=== PATIENT | female | born 1965 | race African-American/Black ===

== ENCOUNTER 2017-07-04 15:41 | Emergency (ER) | payer MEDICARE ==
[~2017-07-04] VITALS: Ht 175.3 cm; Wt 108.4 kg
[~2017-07-04 15:41] MED LIST: AMIT10TA PO; AMLO10TA2 PO; CARV12.52 PO; CYCL5TAB PO; FERR-26 PO; FURO20TA3 PO; HYDR200T5 PO; METO50TA6 PO; OXYC5CAP PO; POTA20TA82 PO; PRED-220 PO
--- NOTE | 2017-07-04 16:00 | PHYS DOC ---
Past Medical History Past Medical History: Hypertension Additional Past Medical Histor: Lupus Past Surgical History: No Surgical History Alcohol Use: None Drug Use: None Adult General Chief Complaint Chief Complaint: FACE PROBLEM HPI HPI Patient is a 51 year old female presenting to the emergency department for evaluation of continued face tingling and she says she feels that the left side of her face is more swollen than the right. She says the main reason that she is coming today is that last night her tongue became extremely swollen to the point she could not speak normally and had some difficulty breathing. She took some Benadryl and now her tongue and lip are normal in size however she says the left side of her face is still swollen. She says that this has happened at least 10 times and she has had no definitive diagnosis but she was told to see an primary care coordinator and is scheduled to see someone in November but she did not remember where. She was just admitted to the hospital 4 days ago and had negative MRI and carotid Doppler. I asked her if she has been diagnosed with angioedema and she said no. She says that her father has the same exact symptoms. She is on no NAVID inhibitor's or arbs. She says that she is having some upper back pain that is a chronic issue and she takes tramadol for but she is out of it currently. Review of Systems Review of Systems Constitutional: Denies fever or chills [] Respiratory: Denies cough or shortness of breath [] Cardiovascular: No additional information not addressed in HPI [] GI: Denies abdominal pain, nausea, vomiting, bloody stools or diarrhea [] : Denies dysuria or hematuria [] Musculoskeletal: + back pain. No joint pain [] Integument: Denies rash or skin lesions [] Neurologic: Denies headache, focal weakness. + BL facial sensory changes [] All other systems were reviewed and found to be within normal limits, except as documented in this note. Current Medications Current Medications Current Medications Medications (Trade) Dose Ordered Sig/Lucio Start Time Stop Time Status Last Admin Dose Admin Tramadol HCl (Ultram) 50 mg 1X ONCE 07/04/17 16:15 07/04/17 16:16 DC 07/04/17 16:19 50 MG Allergies Allergies Allergies Coded Allergies Type Severity Reaction Last Updated Verified lemon Allergy Intermediate Hives 06/30/17 Yes tomato Allergy Intermediate Hives 06/30/17 Yes ibuprofen Allergy Mild Hives 06/30/17 Yes Physical Exam Physical Exam Constitutional: Well developed, well nourished, no acute distress, non-toxic appearance. [] HENT: Normocephalic, atraumatic, bilateral external ears normal, oropharynx moist, no oral exudates, nose normal. [] Eyes: PERRLA, EOMI, conjunctiva normal, no discharge. [] Neck: Normal range of motion, no tenderness, supple, no stridor. [] Cardiovascular:Heart rate regular rhythm, no murmur [] Lungs & Thorax: Bilateral breath sounds clear to auscultation [] Abdomen: Bowel sounds normal, soft, no tenderness, no masses, no pulsatile masses. [] Skin: Warm, dry, no erythema, no rash. [] Back: No tenderness, no CVA tenderness. [] Extremities: Mild upper thoracic paraspinal tenderness, no cyanosis, no clubbing , ROM intact, no edema. [] Neurologic: Alert and oriented X 3, normal motor function, normal sensory function, no focal deficits noted. [] Current Patient Data Vital Signs Vital Signs Date Time Temp Pulse Resp B/P (MAP) Pulse Ox O2 Delivery O2 Flow Rate FiO2 07/04/17 17:57 68 19 148/84 (105) 96 Room Air 07/04/17 15:57 99.2 99.2 EKG EKG [] Radiology/Procedures Radiology/Procedures [] Course & Med Decision Making Course & Med Decision Making Patient denies any new soaps detergents medications or anything that she can think of. Patient is already on prednisone for her autoimmune condition. Certainly this could be an allergic reaction however given her clinical history of this happening multiple times and her father having it this is likely hereditary angioedema. She is having no airway involvement currently and she looks well with normal vital signs. Unfortunately there is no great treatment for her hereditary angioedema that I have to offer her but she should see an primary care coordinator to see if they can start her on any specialized medications. Patient is requesting tramadol for her back pain so I will give her this but told her not to take the Flexeril while she is on tramadol. Patient was watched in the emergency department for over 2 hours and she continued to have no swelling symptoms so she will be discharged in stable condition. Patient aware and agreeable with plan for discharge and verbalized understanding of the need for short-term follow-up and strict ED return precautions discussed worsening pain shortness of breath or other general concerns. Dragon Disclaimer Dragon Disclaimer This electronic medical record was generated, in whole or in part, using a voice recognition dictation system. Departure Departure Impression: Primary Impression: Hereditary angioedema Disposition: HOME, SELF-CARE Condition: STABLE Referrals: NOHEMI LY (PCP) Patient Instructions: Angioedema Additional Instructions: YOU LIKELY HAVE HEREDITARY ANGIOEDEMA THAT IS CAUSING THE FACIAL AND TONGUE SWELLING. YOU CAN TAKE 50MG Q4 HOURS FOR THIS. IF YOU ARE HAVING PROBLEMS BREATHING OR OTHER CONCERNS, CALL 911. CALL THESE NUMBERS TO SEE AN CARTON STAMPER. [phone]. Scripts Tramadol Hcl (TRAMADOL HCL) 50 Mg Tablet 1 TAB PO PRN Q6HRS, #20 TAB Prov: BLAKE WEBSTER DO 07/04/17 BLAKE WEBSTER DO Jul 04, 2017 16:00
[2017-07-04] MEDS ORDERED: traMADol 50 MG TABLET PO ONE (16:15)
[2017-07-04 17:57] VITALS: BP 148/84
[2017-07-04] MEDS ORDERED: TRAM50TA PO (18:16)
== END 2017-07-04 18:25 | disposition home or self-care (01) ==
LOC: ER 15:41
DX: D84.1 Defects in the complement system (principal); M32.9 Systemic lupus erythematosus, unspecified; I10 Essential (primary) hypertension; Z88.8 Allergy status to other drugs, medicaments and biological substances; Z91.018 Allergy to other foods
CPT/HCPCS: 99283

== ENCOUNTER 2017-07-23 08:13 | Emergency (ER) | payer MEDICARE ==
[2017-07-23] MEDS ORDERED: 0.9 % SODIUM CHLORIDE 10 ML DISP.SYRIN. IV (08:30)
[2017-07-23 08:40] LABS: ADD MAN DIFF? NO
[2017-07-23 08:42] LABS: BASO % 1 % (0-3); EOS # 0.1 x10^3/uL (0.0-0.7); EOS % 2 % (0-3); HEMATOCRIT 44.5 % (36.0-47.0); HEMOGLOBIN 14.8 g/dL (12.0-15.5); LYMPH # 1.1 x10^3/uL (1.0-4.8); LYMPH % 21 % (24-48); MEAN CORPUSCULAR HEMOGLOBIN 32 pg (25-35); MEAN CORPUSCULAR HGB CONC 33 g/dL (31-37); MEAN CORPUSCULAR VOLUME 97 fL (79-100); MONO # 0.4 x10^3/uL (0.0-1.1); MONO % 8 % (0-9); NEUT # 3.8 x10^3uL (1.8-7.7); NEUT % 69 % (31-73); PLATELET COUNT 342 x10^3/uL (140-400); RED BLOOD COUNT 4.57 x10^6/uL (3.50-5.40); RED CELL DISTRIBUTION WIDTH 12.9 % (11.5-14.5); WHITE BLOOD COUNT 5.5 x10^3/uL (4.0-11.0)
[2017-07-23] MEDS: IV NORMAL SALINE 1000ML BAG 1,000 ML IV (08:55)
[2017-07-23 08:56] LABS: ANION GAP 0 (6-14); BLOOD UREA NITROGEN 12 mg/dL (7-20); CARBON DIOXIDE 31 mmol/L (21-32); CHLORIDE 100 mmol/L (98-107); CREATININE 0.9 mg/dL (0.6-1.0); GFR 80.2; GLUCOSE 116 mg/dL (70-99); POTASSIUM 3.7 mmol/L (3.5-5.1); SODIUM 131 mmol/L (136-145)
[2017-07-23] MEDS: methylPREDNISolone SOD SUCC PF 125 MG/2 ML VIAL. IV (08:56)
[2017-07-23] MEDS: diphenhydrAMINE 50 MG/ML VIAL IVP (08:56)
[2017-07-23] MEDS: FAMOTIDINE 20 MG/2 ML VIAL IVP (08:58)
[2017-07-23] MEDS: EPINEPHrine 1 MG/ML VIAL IM (08:59)
[2017-07-23 09:01] LABS: ALBUMIN 3.4 g/dL (3.4-5.0); ALK PHOS 107 U/L (46-116); ALT (SGPT) 22 U/L (14-59); AST (SGOT) 19 U/L (15-37); DIRECT BILIRUBIN 0.1 mg/dL (0.0-0.2); LIPASE 90 U/L (73-393); MAGNESIUM 1.7 mg/dL (1.8-2.4); TOTAL BILIRUBIN 0.5 mg/dL (0.2-1.0); TOTAL PROTEIN 7.4 g/dL (6.4-8.2)
[2017-07-23 09:06] LABS: NT-PRO BNP 69 pg/mL (0-124)
[2017-07-23 09:08] LABS: TROPONINI < 0.017 ng/mL (0.000-0.055)
[2017-07-23 09:09] LABS: THYROID STIM HORMONE (TSH) 0.677 uIU/mL (0.358-3.74)
[2017-07-23 09:11] LABS: BILIRUBIN,URINE NEGATIVE (NEG); CLARITY,URINE CLEAR; COLOR,URINE YELLOW; GLUCOSE,URINE NEGATIVE (NEG); NITRITE,URINE NEGATIVE (NEG); PROTEIN,URINE NEGATIVE (NEG-TRACE); UROBILINOGEN,URINE 0.2 mg/dL (0.2 mg/dL)
[2017-07-23 09:21] LABS: SQUAMOUS EPITHELIAL CELL,UR MOD /LPF; WBC,URINE OCC /HPF (0-4)
[2017-07-23 09:22] LABS: BACTERIA,URINE 0 /HPF (0-FEW); RBC,URINE 0 /HPF (0-2)
[2017-07-23 16:04] LABS: NEGATIVE OBC STREP NEG; POSITIVE OBC STREP POS
== END 2017-07-23 11:00 | disposition home or self-care (01) ==
LOC: ER 08:13
DX: L50.0 Allergic urticaria (principal); I10 Essential (primary) hypertension; M32.9 Systemic lupus erythematosus, unspecified
CPT/HCPCS: 36415; 71046; 80048; 80076; 81001; 83690; 83735; 83880; 84443; 84484; 85025; 87070; 87880; 96361; 96372; 96374; 96375; 99285-25; J0171; J1200; J2930; J7030; S0028

== ENCOUNTER 2017-08-24 06:28 | Inpatient (IN) | payer MEDICARE ==
[2017-08-24] MEDS: ACETAMINOPHEN 325 MG TABLET. PO (06:38)
[2017-08-24 07:12] LABS: INFLUENZA A PATIENT NEGATIVE (NEGATIVE); INFLUENZA B PATIENT NEGATIVE (NEGATIVE); OBC FLU VALID
[2017-08-24] MEDS: IV NORMAL SALINE 1000ML BAG 1,000 ML IV ×5 (07:14→17:50)
[2017-08-24] MEDS ORDERED: PIP/TAZO PER PHARMACY MC (07:30)
[2017-08-24 07:37] LABS: BASO % 0 % (0-3); EOS % 0 % (0-3); HEMATOCRIT 42.5 % (36.0-47.0); HEMOGLOBIN 14.2 g/dL (12.0-15.5); LYMPH # 0.8 x10^3/uL (1.0-4.8); LYMPH % 7 % (24-48); MEAN CORPUSCULAR HEMOGLOBIN 32 pg (25-35); MEAN CORPUSCULAR HGB CONC 33 g/dL (31-37); MEAN CORPUSCULAR VOLUME 96 fL (79-100); MONO # 0.6 x10^3/uL (0.0-1.1); MONO % 5 % (0-9); NEUT # 11.6 x10^3uL (1.8-7.7); NEUT % 89 % (31-73); PLATELET COUNT 258 x10^3/uL (140-400); RED BLOOD COUNT 4.44 x10^6/uL (3.50-5.40); RED CELL DISTRIBUTION WIDTH 12.5 % (11.5-14.5); WHITE BLOOD COUNT 13.1 x10^3/uL (4.0-11.0)
[2017-08-24] MEDS: PIPERACILLIN/TAZOBACTAM 3.375 GM in IV NORMAL SALINE 50ML 50 ML IV ×3 (07:40→17:46)
[2017-08-24 07:51] LABS: ANION GAP 9 (6-14); BLOOD UREA NITROGEN 15 mg/dL (7-20); CALCIUM 9.1 mg/dL (8.5-10.1); CARBON DIOXIDE 28 mmol/L (21-32); CHLORIDE 98 mmol/L (98-107); CREATININE 0.8 mg/dL (0.6-1.0); GFR 91.9; GLUCOSE 107 mg/dL (70-99); SODIUM 135 mmol/L (136-145)
[2017-08-24 07:59] LABS: LACTIC ACID 1.9 mmol/L (0.4-2.0)
[2017-08-24 08:03] LABS: TROPONINI < 0.017 ng/mL (0.000-0.055)
[2017-08-24] MEDS: VANCOMYCIN 2 GM in IV DEXTROSE 5% 500 ML IV (08:06)
[2017-08-24 08:08] LABS: ADD MAN DIFF? YES
[2017-08-24] MEDS ORDERED: ONDANSETRON PF 4 MG/2 ML VIAL. IV ×2 (08:15→13:00)
[2017-08-24] MEDS ORDERED: MORPHINE SULFATE 2 MG/ML DISP.SYRIN. IV (08:15)
[2017-08-24 08:25] LABS: NT-PRO BNP 82 pg/mL (0-124)
[2017-08-24 08:26] LABS: ALBUMIN 3.2 g/dL (3.4-5.0); ALK PHOS 96 U/L (46-116); ALT (SGPT) 23 U/L (14-59); AST (SGOT) 16 U/L (15-37); DIRECT BILIRUBIN 0.2 mg/dL (0.0-0.2); LIPASE 101 U/L (73-393); TOTAL BILIRUBIN 0.9 mg/dL (0.2-1.0); TOTAL PROTEIN 7.4 g/dL (6.4-8.2)
[2017-08-24] MEDS: POTASSIUM CHLORIDE 20 MEQ/15 ML ORAL LIQUID. PEG (09:12)
[2017-08-24] MEDS: POTASSIUM CHLORIDE 10 MEQ in IV NORMAL SALINE 100ML 100 ML IV ×2 (09:12→12:45)
[2017-08-24 10:11] LABS: BILIRUBIN,URINE NEGATIVE (NEG); CLARITY,URINE CLEAR; COLOR,URINE YELLOW; GLUCOSE,URINE NEGATIVE (NEG); NITRITE,URINE NEGATIVE (NEG); PROTEIN,URINE NEGATIVE (NEG-TRACE); UROBILINOGEN,URINE 0.2 mg/dL (0.2 mg/dL)
[2017-08-24 10:28] LABS: BACTERIA,URINE FEW /HPF (0-FEW); RBC,URINE RARE /HPF (0-2); SQUAMOUS EPITHELIAL CELL,UR MOD /LPF
[2017-08-24 10:29] LABS: WBC,URINE OCC /HPF (0-4)
[2017-08-24 10:52] LABS: % BANDS 2 % (0-9); % LYMPHS 8 % (24-48); % MONOS 6 % (0-10); % SEGS 84 % (35-66)
[2017-08-24 10:53] LABS: PLT ESTIMATE ADEQUATE (ADEQUATE)
[2017-08-24 11:16] LABS: LACTIC ACID 2.4 mmol/L (0.4-2.0)
[2017-08-24] MEDS ORDERED: traMADol 50 MG TABLET PO ×2 (13:00)
[2017-08-24] MEDS: VANCOMYCIN PER PHARMACY MC ×2 (13:36→13:48)
[2017-08-24] MEDS: AZITHROMYCIN 500 MG in IV NORMAL SALINE 250ML 250 ML IV (13:56)
[2017-08-24 14:07] LABS: SEDIMENTATION RATE 15 (0-25)
[2017-08-24] MEDS: FUROSEMIDE 20 MG TABLET PO (14:31)
[2017-08-24] MEDS: METOPROLOL TART IMMED RELEASE 50 MG TABLET. PO ×2 (14:31→20:18)
[2017-08-24] MEDS: CYCLOBENZAPRINE 10 MG TABLET. PO (14:31)
[2017-08-24] MEDS: POTASSIUM CHLORIDE 20 MEQ TABLET.ER. PO (14:31)
[2017-08-24] MEDS: predniSONE 10 MG TABLET PO (14:31)
[2017-08-24] MEDS: CARVEDILOL 12.5 MG TABLET. PO ×2 (14:31→17:00)
[2017-08-24] MEDS: oxyCODONE IR 5 MG TABLET PO ×3 (14:34→20:17)
[2017-08-24 15:14] LABS: MYCOPLASMA PATIENT NEGATIVE (NEGATIVE); NEGATIVE OBC MYCO NEG; POSITIVE OBC MYCO POS
[2017-08-24] MEDS: IPRATRPIUM/ALBUTEROL 0.5/2.5MG 3 ML NEBU. NEB (16:19)
[2017-08-24] MEDS: amLODIPine BESYLATE 10 MG TABLET PO (17:46)
[2017-08-24] MEDS: diphenhydrAMINE HCL 25 MG CAPSULE PO (20:17)
[2017-08-24] MEDS: FAMOTIDINE 20 MG TABLET. PO (20:18)
[2017-08-24] MEDS: AMITRIPTYLINE HCL 10 MG TABLET. PO (20:18)
[2017-08-24] MEDS: VANCOMYCIN 1.75 GM in IV DEXTROSE 5% 500 ML IV (20:19)
[2017-08-25] MEDS: PIPERACILLIN/TAZOBACTAM 3.375 GM in IV NORMAL SALINE 50ML 50 ML IV ×4 (00:05→17:25)
[2017-08-25 05:13] LABS: ADD MAN DIFF? NO
[2017-08-25 05:25] LABS: BASO % 0 % (0-3); EOS % 0 % (0-3); HEMATOCRIT 38.5 % (36.0-47.0); LYMPH % 9 % (24-48); MEAN CORPUSCULAR HEMOGLOBIN 33 pg (25-35); MEAN CORPUSCULAR HGB CONC 34 g/dL (31-37); MEAN CORPUSCULAR VOLUME 97 fL (79-100); MONO # 0.6 x10^3/uL (0.0-1.1); MONO % 5 % (0-9); NEUT # 9.6 x10^3uL (1.8-7.7); NEUT % 85 % (31-73); PLATELET COUNT 233 x10^3/uL (140-400); RED BLOOD COUNT 3.99 x10^6/uL (3.50-5.40); RED CELL DISTRIBUTION WIDTH 12.8 % (11.5-14.5); WHITE BLOOD COUNT 11.3 x10^3/uL (4.0-11.0)
[2017-08-25 05:45] LABS: ANION GAP 9 (6-14); BLOOD UREA NITROGEN 8 mg/dL (7-20); CARBON DIOXIDE 29 mmol/L (21-32); CHLORIDE 102 mmol/L (98-107); CREATININE 0.8 mg/dL (0.6-1.0); GFR 91.9; GLUCOSE 96 mg/dL (70-99); POTASSIUM 3.6 mmol/L (3.5-5.1); SODIUM 140 mmol/L (136-145)
[2017-08-25] MEDS: amLODIPine BESYLATE 10 MG TABLET PO ×2 (06:00→17:24)
[2017-08-25 06:22] LABS: C4 COMPLEMENT 24 mg/dL (14-44)
[2017-08-25 06:22] LABS: C3 COMPLEMENT 131 mg/dL (82-167)
[2017-08-25] MEDS: IPRATRPIUM/ALBUTEROL 0.5/2.5MG 3 ML NEBU. NEB ×5 (07:42→19:31)
[2017-08-25] MEDS: IV NORMAL SALINE 1000ML BAG 1,000 ML IV (08:20)
[2017-08-25] MEDS: guaiFENesin DM 200MG/20MG 10 ML SYRUP PO (08:21)
[2017-08-25] MEDS: METOPROLOL TART IMMED RELEASE 50 MG TABLET. PO ×2 (08:21→21:38)
[2017-08-25] MEDS: FAMOTIDINE 20 MG TABLET. PO ×2 (08:21→21:34)
[2017-08-25] MEDS: CARVEDILOL 12.5 MG TABLET. PO ×2 (08:21→17:24)
[2017-08-25] MEDS: FUROSEMIDE 20 MG TABLET PO (08:21)
[2017-08-25] MEDS: POTASSIUM CHLORIDE 20 MEQ TABLET.ER. PO (08:22)
[2017-08-25] MEDS: oxyCODONE IR 5 MG TABLET PO ×4 (08:22→21:35)
[2017-08-25] MEDS: predniSONE 10 MG TABLET PO (08:22)
[2017-08-25] MEDS: VANCOMYCIN 1.75 GM in IV DEXTROSE 5% 500 ML IV ×2 (08:25→22:34)
[2017-08-25] MEDS: FERROUS SULFATE 325 MG TABLET. PO (08:25)
[2017-08-25] MEDS: VANCOMYCIN PER PHARMACY MC ×2 (10:59→20:09)
[2017-08-25] MEDS ORDERED: LACTOBACILLUS RHAMNOSUS GG 1 CAPSULE. PO (12:00)
[2017-08-25] MEDS ORDERED: AZITHROMYCIN 500 MG in IV NORMAL SALINE 250ML 250 ML IV (16:00)
[2017-08-25] MEDS: CYCLOBENZAPRINE 10 MG TABLET. PO (17:23)
[2017-08-25] MEDS: AZITHROMYCIN 500 MG in IV NORMAL SALINE 250ML 250 ML IV (17:59)
[2017-08-25 18:11] LABS: SPECIMEN SOURCE Urine (.); STREP PNEUMO ANTIGEN Negative (Negative)
[2017-08-25 18:11] LABS: LEGIONELLA AG UR Negative (Negative)
[2017-08-25 19:00] LABS: VANC TR 15.8 mcg/mL (10.0-20.0)
[2017-08-25] MEDS: diphenhydrAMINE HCL 25 MG CAPSULE PO (21:34)
[2017-08-25] MEDS: AMITRIPTYLINE HCL 10 MG TABLET. PO (21:34)
[2017-08-26] MEDS: PIPERACILLIN/TAZOBACTAM 3.375 GM in IV NORMAL SALINE 50ML 50 ML IV ×5 (01:25→23:12)
[2017-08-26] MEDS: amLODIPine BESYLATE 10 MG TABLET PO ×2 (05:03→18:07)
[2017-08-26] MEDS: IPRATRPIUM/ALBUTEROL 0.5/2.5MG 3 ML NEBU. NEB ×4 (07:11→19:45)
[2017-08-26] MEDS: POTASSIUM CHLORIDE 20 MEQ TABLET.ER. PO (07:50)
[2017-08-26] MEDS: CYCLOBENZAPRINE 10 MG TABLET. PO (07:51)
[2017-08-26] MEDS: CARVEDILOL 12.5 MG TABLET. PO ×2 (07:51→17:39)
[2017-08-26] MEDS: METOPROLOL TART IMMED RELEASE 50 MG TABLET. PO ×2 (08:40→20:35)
[2017-08-26] MEDS: FUROSEMIDE 20 MG TABLET PO (08:41)
[2017-08-26] MEDS: predniSONE 10 MG TABLET PO (08:41)
[2017-08-26] MEDS: FERROUS SULFATE 325 MG TABLET. PO (08:41)
[2017-08-26] MEDS: oxyCODONE IR 5 MG TABLET PO ×4 (08:41→20:36)
[2017-08-26] MEDS: VANCOMYCIN 1.75 GM in IV DEXTROSE 5% 500 ML IV ×2 (08:47→20:36)
[2017-08-26] MEDS: FAMOTIDINE 20 MG TABLET. PO ×2 (08:56→20:36)
[2017-08-26] MEDS: VANCOMYCIN PER PHARMACY MC (10:05)
[2017-08-26] MEDS: guaiFENesin DM 200MG/20MG 10 ML SYRUP PO (12:07)
[2017-08-26] MEDS: AZITHROMYCIN 500 MG in IV NORMAL SALINE 250ML 250 ML IV (16:05)
[2017-08-26] MEDS: diphenhydrAMINE HCL 25 MG CAPSULE PO (20:36)
[2017-08-26] MEDS: AMITRIPTYLINE HCL 10 MG TABLET. PO (20:36)
[2017-08-27 05:09] LABS: ADD MAN DIFF? NO
[2017-08-27 05:23] LABS: BASO % 0 % (0-3); EOS % 1 % (0-3); HEMATOCRIT 39.5 % (36.0-47.0); HEMOGLOBIN 13.3 g/dL (12.0-15.5); LYMPH % 20 % (24-48); MEAN CORPUSCULAR HEMOGLOBIN 33 pg (25-35); MEAN CORPUSCULAR HGB CONC 34 g/dL (31-37); MEAN CORPUSCULAR VOLUME 96 fL (79-100); MONO # 0.6 x10^3/uL (0.0-1.1); MONO % 11 % (0-9); NEUT # 3.4 x10^3uL (1.8-7.7); NEUT % 67 % (31-73); PLATELET COUNT 306 x10^3/uL (140-400); RED CELL DISTRIBUTION WIDTH 12.6 % (11.5-14.5)
[2017-08-27 05:38] LABS: ANION GAP 7 (6-14); BLOOD UREA NITROGEN 9 mg/dL (7-20); CARBON DIOXIDE 34 mmol/L (21-32); CHLORIDE 100 mmol/L (98-107); GLUCOSE 79 mg/dL (70-99); POTASSIUM 3.3 mmol/L (3.5-5.1); SODIUM 141 mmol/L (136-145)
[2017-08-27] MEDS: PIPERACILLIN/TAZOBACTAM 3.375 GM in IV NORMAL SALINE 50ML 50 ML IV (06:02)
[2017-08-27] MEDS: amLODIPine BESYLATE 10 MG TABLET PO (06:02)
[2017-08-27] MEDS: POTASSIUM CHLORIDE 20 MEQ TABLET.ER. PO ×2 (08:11→11:00)
[2017-08-27] MEDS: CARVEDILOL 12.5 MG TABLET. PO (08:12)
[2017-08-27] MEDS: VANCOMYCIN 1.75 GM in IV DEXTROSE 5% 500 ML IV (08:47)
[2017-08-27] MEDS: METOPROLOL TART IMMED RELEASE 50 MG TABLET. PO (08:48)
[2017-08-27] MEDS: FUROSEMIDE 20 MG TABLET PO (08:48)
[2017-08-27] MEDS: oxyCODONE IR 5 MG TABLET PO ×2 (08:48→12:32)
[2017-08-27] MEDS: FAMOTIDINE 20 MG TABLET. PO (08:48)
[2017-08-27] MEDS: FERROUS SULFATE 325 MG TABLET. PO (08:49)
[2017-08-27] MEDS: predniSONE 10 MG TABLET PO (08:49)
[2017-08-27] MEDS: IPRATRPIUM/ALBUTEROL 0.5/2.5MG 3 ML NEBU. NEB ×2 (09:02→13:10)
[2017-08-27] MEDS: HYDROXYCHLOROQUINE 200 MG TABLET PO (10:36)
[2017-08-27] MEDS: AMOXICILLIN/K CLAV 875/125MG TABLET. PO (12:32)
== END 2017-08-27 15:01 | disposition home or self-care (01) | DRG 871 ==
LOC: ER 06:28 → 5 NORTH 08:29
DX: A41.9 Sepsis, unspecified organism (principal); J18.9 Pneumonia, unspecified organism; M32.9 Systemic lupus erythematosus, unspecified; E66.01 Morbid (severe) obesity due to excess calories; G47.33 Obstructive sleep apnea (adult) (pediatric); H57.9 Unspecified disorder of eye and adnexa; H91.90 Unspecified hearing loss, unspecified ear; I10 Essential (primary) hypertension; Y95 Nosocomial condition; G43.909 Migraine, unspecified, not intractable, without status migrainosus; Z68.39 Body mass index [BMI] 39.0-39.9, adult; Z79.52 Long term (current) use of systemic steroids; Z79.899 Other long term (current) drug therapy; Z80.6 Family history of leukemia; Z86.61 Personal history of infections of the central nervous system; Z88.6 Allergy status to analgesic agent; Z90.710 Acquired absence of both cervix and uterus; Z91.012 Allergy to eggs; Z91.010 Allergy to peanuts; Z91.018 Allergy to other foods
CPT/HCPCS: 36415; 71045; 71046; 80048; 80076; 80202; 81001; 83605; 83690; 83880; 84484; 85007; 85025; 85651; 86160; 86738; 87040; 87086; 87449; 87804; 87804-59; 93005; 94640; 94760; 96365; 96375; 99285-25; J0456; J2543; J3370; J7030; J7050; J7512; J7620; Q0163

== ENCOUNTER 2017-08-31 14:39 | Emergency (ER) | payer MEDICARE ==
[2017-08-31] MEDS: LIDO:MAALOX:DONNATAL 1:1:1 15 ML SINGLE DOSE SWSW ×2 (15:20)
[2017-08-31] MEDS: MAGNESIUM CITRATE 296 ML SOLUTION. PO ×2 (15:21)
== END 2017-08-31 15:45 | disposition home or self-care (01) ==
LOC: ER 15:45
DX: R43.2 Parageusia (principal); K59.00 Constipation, unspecified; I10 Essential (primary) hypertension; Z88.5 Allergy status to narcotic agent; Z91.012 Allergy to eggs; Z91.018 Allergy to other foods
CPT/HCPCS: 99283

== ENCOUNTER 2017-10-01 06:06 | Emergency (ER) | payer MEDICARE ==
[2017-10-01] MEDS: LIDO:MAALOX:DONNATAL 1:1:1 15 ML SINGLE DOSE SWSW (06:38)
[2017-10-01] MEDS: predniSONE 20 MG TABLET PO (06:38)
[2017-10-01] MEDS: diphenhydrAMINE HCL 25 MG CAPSULE PO (06:38)
== END 2017-10-01 07:24 | disposition home or self-care (01) ==
LOC: ER 06:06
DX: L50.0 Allergic urticaria (principal); R07.89 Other chest pain; L29.9 Pruritus, unspecified; K21.9 Gastro-esophageal reflux disease without esophagitis; I10 Essential (primary) hypertension; M32.9 Systemic lupus erythematosus, unspecified; Z90.710 Acquired absence of both cervix and uterus; Z88.6 Allergy status to analgesic agent; Z91.012 Allergy to eggs; Z88.5 Allergy status to narcotic agent; Z91.010 Allergy to peanuts; Z91.018 Allergy to other foods
CPT/HCPCS: 99284; J7512; Q0163

== ENCOUNTER 2017-10-21 15:47 | Emergency (ER) | payer OTHER, MEDICARE ==
[2017-10-21] MEDS: DIPHTH,PERTUSS(ACELL),TET TOX 0.5 ML DISP.SYRIN. VAX IM (16:33)
== END 2017-10-21 16:26 | disposition home or self-care (01) ==
LOC: ER 15:47
DX: S61.512A Laceration without foreign body of left wrist, initial encounter (principal); I10 Essential (primary) hypertension; M32.9 Systemic lupus erythematosus, unspecified; Z88.8 Allergy status to other drugs, medicaments and biological substances; Z91.041 Radiographic dye allergy status; Z91.012 Allergy to eggs; Z88.5 Allergy status to narcotic agent; Z91.010 Allergy to peanuts; W26.0XXA Contact with knife, initial encounter; Y93.89 Activity, other specified; Y99.8 Other external cause status; Y92.89 Other specified places as the place of occurrence of the external cause
CPT/HCPCS: 90471; 90715; 99283-25

== ENCOUNTER 2017-11-26 16:29 | Emergency (ER) | payer MEDICARE, OTHER ==
[2017-11-26 17:58] LABS: BASO % 0 % (0-3); EOS % 0 % (0-3); HEMATOCRIT 39.1 % (36.0-47.0); HEMOGLOBIN 13.4 g/dL (12.0-15.5); LYMPH # 0.5 x10^3/uL (1.0-4.8); LYMPH % 8 % (24-48); MEAN CORPUSCULAR HEMOGLOBIN 33 pg (25-35); MEAN CORPUSCULAR HGB CONC 34 g/dL (31-37); MEAN CORPUSCULAR VOLUME 96 fL (79-100); MONO # 0.3 x10^3/uL (0.0-1.1); MONO % 4 % (0-9); NEUT # 5.8 x10^3uL (1.8-7.7); NEUT % 88 % (31-73); PLATELET COUNT 324 x10^3/uL (140-400); RED BLOOD COUNT 4.08 x10^6/uL (3.50-5.40); RED CELL DISTRIBUTION WIDTH 13.3 % (11.5-14.5); WHITE BLOOD COUNT 6.7 x10^3/uL (4.0-11.0)
[2017-11-26 18:00] LABS: ADD MAN DIFF? YES
[2017-11-26 18:11] LABS: ANION GAP 10 (6-14); BLOOD UREA NITROGEN 19 mg/dL (7-20); CALCIUM 9.5 mg/dL (8.5-10.1); CARBON DIOXIDE 27 mmol/L (21-32); CHLORIDE 104 mmol/L (98-107); GLUCOSE 139 mg/dL (70-99); POTASSIUM 3.4 mmol/L (3.5-5.1); SODIUM 141 mmol/L (136-145)
[2017-11-26 18:15] LABS: C-REACTIVE PROTEIN 5.4 mg/L (0-3.3)
[2017-11-26 18:44] LABS: % LYMPHS 13 % (24-48); % MONOS 4 % (0-10); % SEGS 83 % (35-66)
[2017-11-26 18:45] LABS: PLT ESTIMATE ADEQUATE (ADEQUATE)
[2017-11-26 19:18] LABS: SEDIMENTATION RATE 8 (0-25)
== END 2017-11-26 19:21 | disposition home or self-care (01) ==
LOC: ER 16:29
DX: R10.30 Lower abdominal pain, unspecified (principal); M25.551 Pain in right hip; I10 Essential (primary) hypertension; M32.9 Systemic lupus erythematosus, unspecified; Z90.710 Acquired absence of both cervix and uterus; M79.89 Other specified soft tissue disorders; Z88.6 Allergy status to analgesic agent; Z91.012 Allergy to eggs; Z91.010 Allergy to peanuts; Z88.8 Allergy status to other drugs, medicaments and biological substances; Z91.018 Allergy to other foods
CPT/HCPCS: 36415; 74176; 80048; 85007; 85025; 85651; 86140; 93971; 99285-25

== ENCOUNTER 2018-02-06 23:32 | Emergency (ER) | payer MEDICARE | END 2018-02-07 01:47 | disposition home or self-care (01) | LOC: ER 23:32 | DX: L03.116 Cellulitis of left lower limb (principal); I10 Essential (primary) hypertension; Z88.6 Allergy status to analgesic agent; Z91.012 Allergy to eggs; Z91.010 Allergy to peanuts; Z91.018 Allergy to other foods | CPT/HCPCS: 99283 ==

== ENCOUNTER 2019-06-01 00:03 | Emergency (ER) | payer MEDICARE ==
[~2019-06-01] VITALS: Ht 162.6 cm; Wt 117.5 kg
[~2019-06-01 00:03] MED LIST changes: -AMLO10TA2 PO; +AMLO10TA8 PO; +AMOX1TAB11 PO; +CARV12.511 PO; -CARV12.52 PO; +CEPH-264 PO; +DIPH25CA58 PO; +EPIPEN 2-P0.3 MG/0.3 IJ; -FERR-26 PO; +FERR325T14 PO; +GUAI5SYR PO; +PRED50TA PO; +RANI-376 PO; +TRAM50TA PO
[2019-06-01 01:14] LABS: BILIRUBIN,URINE NEGATIVE (NEG); CLARITY,URINE CLEAR; COLOR,URINE YELLOW; NITRITE,URINE NEGATIVE (NEG); PROTEIN,URINE NEGATIVE (NEG-TRACE); UROBILINOGEN,URINE 0.2 mg/dL (0.2 mg/dL)
[2019-06-01] MEDS ORDERED: ONDANSETRON PF 4 MG/2 ML VIAL. IVP ONE (01:15)
[2019-06-01] MEDS ORDERED: fentaNYL PF VIAL 100 MCG/2 ML VIAL IVP ONE (01:15)
[2019-06-01 01:21] LABS: BACTERIA,URINE FEW /HPF (0-FEW); HYALINE CASTS, URINE OCCASIONAL /HPF; RBC,URINE OCC /HPF (0-2); SQUAMOUS EPITHELIAL CELL,UR FEW /LPF; WBC,URINE OCC /HPF (0-4)
--- NOTE | 2019-06-01 01:32 | RAD ---
PQRS Compliance statement: One or more of the following individualized dose reduction techniques were utilized for this examination: 1. Automated exposure control. 2. Adjustment of the mA and/or kV according to patient size. 3. Use of iterative reconstruction technique. Indication:Back pain. TECHNIQUE: CT lumbar spine without IV contrast with multiplanar reformats. COMPARISON: None FINDINGS: Lumbar spine is in normal anatomic alignment. 5 lumbar type vertebral bodies. No compression deformities. Facet joints are in normal anatomic alignment. No acute fractures. L1-L2: No significant disc bulge or herniation. No facet arthropathy. No neuroforamina narrowing. L2-L3: Mild circumferential disc bulge flattening intrathecal sac. Mild bilateral facet arthropathy. No neuroforamina narrowing. L3-L4: Mild circumferential disc bulge flattening intrathecal sac. Posterior epidural fat noted. Mild bilateral facet arthropathy. There is moderate spinal canal stenosis measuring 6-7 mm in AP dimension. Moderate to severe bilateral neuroforamina narrowing. L4-L5: Moderate sized circumferential disc bulge flattening intrathecal sac. Prominent posterior epidural fat noted. Severe bilateral facet arthropathy. Osteophyte is seen projecting anteromedially from the bilateral facet joints. There is moderate to severe spinal canal narrowing measuring 5 mm in AP dimension. Severe left and moderate right neuroforamina narrowing. L5-S1: Mild circumferential disc bulge flattening intrathecal sac. Mild bilateral facet arthropathy. Moderate to severe bilateral neuroforamina narrowing. IMPRESSION: Degenerative disc disease, facet arthropathy and posterior epidural fat causing varying amount of spinal canal narrowing and neural foramina narrowing as described above. Electronically signed by: Gal Matson DO (06/01/2019 1:29 AM) [id number]
[2019-06-01 02:16] LABS: BASO % 1 % (0-3); EOS # 0.1 x10^3/uL (0.0-0.7); EOS % 1 % (0-3); HEMATOCRIT 45.5 % (36.0-47.0); HEMOGLOBIN 15.5 g/dL (12.0-15.5); LYMPH # 0.8 x10^3/uL (1.0-4.8); LYMPH % 11 % (24-48); MEAN CORPUSCULAR HEMOGLOBIN 33 pg (25-35); MEAN CORPUSCULAR HGB CONC 34 g/dL (31-37); MEAN CORPUSCULAR VOLUME 98 fL (79-100); MONO # 0.7 x10^3/uL (0.0-1.1); MONO % 8 % (0-9); NEUT # 6.2 x10^3/uL (1.8-7.7); NEUT % 79 % (31-73); PLATELET COUNT 291 x10^3/uL (140-400); RED BLOOD COUNT 4.63 x10^6/uL (3.50-5.40); RED CELL DISTRIBUTION WIDTH 12.7 % (11.5-14.5); WHITE BLOOD COUNT 7.8 x10^3/uL (4.0-11.0)
[2019-06-01 02:32] LABS: CALCIUM 9.5 mg/dL (8.5-10.1); CREATININE 1.1 mg/dL (0.6-1.0); GFR 63.4; POTASSIUM 3.2 mmol/L (3.5-5.1)
[2019-06-01 02:38] LABS: ALBUMIN 3.7 g/dL (3.4-5.0); TOTAL BILIRUBIN 0.5 mg/dL (0.2-1.0); TOTAL PROTEIN 7.5 g/dL (6.4-8.2)
[2019-06-01 03:23] VITALS: BP 162/79
[2019-06-01] MEDS ORDERED: CYCL10TA2 PO (03:33)
[2019-06-01] MEDS ORDERED: HYDR-3164 PO (03:33)
--- NOTE | 2019-06-01 03:34 | PHYS DOC ---
Past Medical History Past Medical History: Hypertension, Migraines, Other Additional Past Medical Histor: Lupus, Heart Murmur Past Surgical History: Hysterectomy Alcohol Use: None Drug Use: None Adult General Chief Complaint Chief Complaint: MULTIPLE COMPLAINTS HPI HPI Patient is a 53 year old AA female history of lupus who presents resents with low back pain. Pain is rated moderate to severe is described as sharp and diffuse. Is worse palpation and movement. Patient also reports right hip pain. Denies trauma or repetitive strain injury. No motor weakness or loss of sensation. No urinary frequency urgency burning or dysuria. No other acute symptoms or complaints.[] Review of Systems Review of Systems ROS as per HPI All other systems were reviewed and found to be within normal limits, except as documented in this note. Current Medications Current Medications Current Medications Medications (Trade) Dose Ordered Sig/Lucio Start Time Stop Time Status Last Admin Dose Admin Fentanyl Citrate (Fentanyl 2ml Vial) 75 mcg 1X ONCE 06/01/19 01:15 06/01/19 01:16 DC 06/01/19 01:49 75 MCG Ondansetron HCl (Zofran) 4 mg 1X ONCE 06/01/19 01:15 06/01/19 01:16 DC 06/01/19 01:49 4 MG Allergies Allergies Allergies Coded Allergies Type Severity Reaction Last Updated Verified acetaminophen Allergy Severe Itching 08/24/17 Yes egg Allergy Severe 08/24/17 Yes peanut Allergy Severe 08/24/17 Yes ibuprofen Allergy Intermediate Hives 07/23/17 Yes lemon Allergy Intermediate Hives 07/23/17 Yes tomato Allergy Intermediate Hives 07/23/17 Yes Uncoded Allergies Type Severity Reaction Last Updated Verified jalapeno Allergy Severe 08/24/17 Physical Exam Physical Exam Constitutional: Well developed, well nourished,moderate distress secondary to pain. [] HENT: Normocephalic, atraumatic, bilateral external ears normal, oropharynx mo ist, nose normal. [] Eyes: PERRLA, EOMI, conjunctiva normal. [] Neck: Normal range of motion, no tenderness. [] Cardiovascular:Heart rate regular rhythm, no murmur. [] Lungs & Thorax: Bilateral breath sounds clear to auscultation. [] Abdomen: Bowel sounds normal, soft, no tenderness. [] Skin: Warm, dry, no erythema. [] Back: Diffuse lumbar back pain, tenderness, reproduces palpation and lateral rotation.. [] Extremities: No tenderness, no cyanosis, no clubbing, ROM intact, no edema. [] Neurologic: Alert and oriented X 3, normal motor function, normal sensory function, no focal deficits noted. [] Psychologic: Affect normal, judgement normal, mood normal. [] Current Patient Data Vital Signs Vital Signs Date Time Temp Pulse Resp B/P (MAP) Pulse Ox O2 Delivery O2 Flow Rate FiO2 06/01/19 02:23 71 180/89 (119) 93 Room Air 06/01/19 00:50 97.8 14 97.8 Lab Values Laboratory Tests Test 06/01/19 00:45 06/01/19 01:30 Urine Collection Type Unknown Urine Color Yellow Urine Clarity Clear Urine pH 6.0 Urine Specific [place] 1.015 Urine Protein Negative mg/dL (NEG-TRACE) Urine Glucose (UA) Negative mg/dL (NEG) Urine Ketones (Stick) Negative mg/dL (NEG) Urine Blood Negative (NEG) Urine Nitrite Negative (NEG) Urine Bilirubin Negative (NEG) Urine Urobilinogen Dipstick 0.2 mg/dL (0.2 mg/dL) Urine Leukocyte Esterase Negative (NEG) Urine RBC Occ /HPF (0-2) Urine WBC Occ /HPF (0-4) Urine Squamous Epithelial Cells Few /LPF Urine Bacteria Few /HPF (0-FEW) Urine Hyaline Casts Occasional /HPF Urine Mucus Slight /LPF White Blood Count 7.8 x10^3/uL (4.0-11.0) Red Blood Count 4.63 x10^6/uL (3.50-5.40) Hemoglobin 15.5 g/dL (12.0-15.5) Hematocrit 45.5 % (36.0-47.0) Mean Corpuscular Volume 98 fL (79-100) Mean Corpuscular Hemoglobin 33 pg (25-35) Mean Corpuscular Hemoglobin Concent 34 g/dL (31-37) Red Cell Distribution Width 12.7 % (11.5-14.5) Platelet Count 291 x10^3/uL (140-400) Neutrophils (%) (Auto) 79 % (31-73) H Lymphocytes (%) (Auto) 11 % (24-48) L Monocytes (%) (Auto) 8 % (0-9) Eosinophils (%) (Auto) 1 % (0-3) Basophils (%) (Auto) 1 % (0-3) Neutrophils # (Auto) 6.2 x10^3/uL (1.8-7.7) Lymphocytes # (Auto) 0.8 x10^3/uL (1.0-4.8) L Monocytes # (Auto) 0.7 x10^3/uL (0.0-1.1) Eosinophils # (Auto) 0.1 x10^3/uL (0.0-0.7) Basophils # (Auto) 0.0 x10^3/uL (0.0-0.2) Sodium Level 138 mmol/L (136-145) Potassium Level 3.2 mmol/L (3.5-5.1) L Chloride Level 98 mmol/L (98-107) Carbon Dioxide Level 28 mmol/L (21-32) Anion Gap 12 (6-14) Blood Urea Nitrogen 23 mg/dL (7-20) H Creatinine 1.1 mg/dL (0.6-1.0) H Estimated GFR (Cockcroft-Gault) 63.4 BUN/Creatinine Ratio 21 (6-20) H Glucose Level 161 mg/dL (70-99) H Calcium Level 9.5 mg/dL (8.5-10.1) Total Bilirubin 0.5 mg/dL (0.2-1.0) Aspartate Amino Transferase (AST) 34 U/L (15-37) Alanine Aminotransferase (ALT) 31 U/L (14-59) Alkaline Phosphatase 103 U/L (46-116) Total Protein 7.5 g/dL (6.4-8.2) Albumin 3.7 g/dL (3.4-5.0) Albumin/Globulin Ratio 1.0 (1.0-1.7) Laboratory Tests 06/01/19 01:30 Laboratory Tests 06/01/19 01:30 EKG EKG [] Radiology/Procedures Radiology/Procedures [CT lumbar spin: Degenerative disc disease with facet arthropathy and posterior epidural fat causing various amounts of spinal canal narrowing and neural fo raminal narrowing as described.] Course & Med Decision Making Course & Med Decision Making Pertinent Labs and Imaging studies reviewed. (See chart for details) [Pain resolved with treatment. No focal neurologic deficits. CT findings reviewed with patient. Recommendations are for supportive care and follow-up with PCP for further review of imaging studies and coordination of outpatient care. Courtesy work note provided.] Oni Disclaimer Dragon Disclaimer This electronic medical record was generated, in whole or in part, using a voice recognition dictation system. Departure Departure Impression: Primary Impression: Lumbar back pain Disposition: HOME, SELF-CARE Condition: Referrals: NO PCP (PCP) Patient Instructions: Back Pain, Adult Additional Instructions: Please go home and rest. Take pain medication and anti-inflammatories as directed. Follow-up with your PCP to review abnormal CT lumbar spine results and for further management and recommendations. Scripts Cyclobenzaprine Hcl (CYCLOBENZAPRINE HCL) 10 Mg Tablet 1 TAB PO TID, #30 TAB Prov: GUADALUPE LY DO 06/01/19 Hydrocodone/Apap 5-325 (NORCO 5-325 TABLET) 1 Each Tablet 1 TAB PO TID, #15 TAB Prov: GUADALUPE LY DO 06/01/19 GUADALUPE LY DO Jun 01, 2019 03:34
== END 2019-06-01 04:10 | disposition home or self-care (01) ==
LOC: ER 00:03
DX: M54.5 Low back pain (principal); M25.551 Pain in right hip; I10 Essential (primary) hypertension; G43.909 Migraine, unspecified, not intractable, without status migrainosus; Z90.710 Acquired absence of both cervix and uterus; Z88.6 Allergy status to analgesic agent; Z91.010 Allergy to peanuts; Z91.012 Allergy to eggs; Z91.018 Allergy to other foods; Z88.8 Allergy status to other drugs, medicaments and biological substances
CPT/HCPCS: 36415; 72131; 80053; 81001; 85025; 96374; 96375; 99285; J2405; J3010